=== PATIENT | female | born 1980 ===

== ENCOUNTER 2019-04-14 12:46 | Outpatient (CLI) | payer OTHER | END 2019-04-14 12:51 | disposition home or self-care (01) | LOC: NUCLEAR 12:46 | DX: N12 Tubulo-interstitial nephritis, not specified as acute or chronic (principal) | CPT/HCPCS: 78708; A9539; J1940 ==

== ENCOUNTER → 2019-04-26 08:03 | Outpatient (CLI) | payer OTHER | END | disposition home or self-care (01) | LOC: LAB 08:03 | DX: N30.00 Acute cystitis without hematuria (principal) ==

== ENCOUNTER 2024-11-25 09:57 | Outpatient (CLI) | payer OTHER | END 2024-11-25 12:34 | disposition home or self-care (01) | LOC: NST 09:57 | PROVIDERS: ATTEND Obstetrics & Gynecology | DX: Z34.83 Encounter for supervision of other normal pregnancy, third trimester (principal) ==

== ENCOUNTER 2024-12-02 15:51 | Outpatient (CLI) | payer OTHER | END 2024-12-02 16:57 | disposition home or self-care (01) | LOC: NST 15:51 | PROVIDERS: ATTEND Obstetrics & Gynecology | DX: Z34.83 Encounter for supervision of other normal pregnancy, third trimester (principal) ==

== ENCOUNTER → 2024-12-05 | Outpatient (CLI) | payer OTHER | END | disposition home or self-care (01) | LOC: NST 19:09 | PROVIDERS: ATTEND Obstetrics & Gynecology | DX: Z34.83 Encounter for supervision of other normal pregnancy, third trimester (principal) ==

== ENCOUNTER 2024-12-06 14:38 | Inpatient (IN) | payer OTHER ==
[~2024-12-06] VITALS: Ht 157.5 cm; Wt 2.7 kg
[2024-12-06 15:22] VITALS: BP 143/83
[2024-12-06] MEDS ORDERED: RINGERS SOLUTION,LACTATED 1,000 ML IV SCH (16:00)
[2024-12-06] MEDS ORDERED: MISOPROSTOL 25 MCG TABLET ONE (16:01)
[2024-12-06 16:38] LABS: HEMATOCRIT 39.1 % (36.0-45.00); MEAN CELL VOLUME 87.7 fL (80.00-100.00); MEAN CORPUSCULAR HEMOGLOBIN 29.1 pg (27.00-32.0); MEAN CORPUSCULAR HGB CONC 33.2 g/dl (32.0-36.0); RED BLOOD COUNT 4.46 M/uL (4.00-6.00); RED CELL DISTRIBUTION WIDTH 15.2 % (11.5-14.5)
[2024-12-06 16:50] LABS: INR 0.94; PARTIAL THROMBOPLASTIN TIME 28.2 SECONDS (22.0-34.0); PLATELET COUNT 164 K/uL (150-450); PROTHROMBIN TIME 10.3 SECONDS (9.0-11.5)
[2024-12-06] MEDS ORDERED: LABETALOL HCL 100 MG TABLET PO SCH (17:00)
[2024-12-06 17:15] LABS: ALBUMIN 2.4 gm/dL (3.4-5.0); BILIRUBIN TOTAL 0.2 mg/dL (0.3-1.2); CALCIUM 9.1 mg/dL (8.5-10.1); CREATININE SERUM 0.63 mg/dL (0.55-1.02); GFR 103.14; GLOBULINA 3.9 G/DL (2.4-3.5); POTASSIUM 4.59 mEq/L (3.5-5.1); TOTAL PROTEIN 6.3 gm/dL (6.4-8.2)
[2024-12-06] MEDS ORDERED: MISOPROSTOL 25 MCG TABLET VAG ONE (17:30)
[2024-12-06 19:36] VITALS: BP 133/75
[2024-12-06 23:14] VITALS: BP 133/77
[2024-12-07 03:06] VITALS: BP 142/68
[2024-12-07] MEDS ORDERED: OXYTOCIN 20 UNITS/500ML RL PIGGYBAG IV ONE (07:21)
[2024-12-07 07:35] VITALS: BP 161/85
[2024-12-07] MEDS ORDERED: CITRIC ACID/SODIUM CITRATE 30 ML BLIST.PACK PO ONE (07:44)
[2024-12-07] MEDS ORDERED: OXYTOCIN 500 ML IV ONE (09:00)
[2024-12-07] MEDS ORDERED: SERTRALINE HCL 50 MG TABLET PO SCH (09:00)
[2024-12-07] MEDS ORDERED: ERYTHROMYCIN BASE OPHT 1GM EACH TUBE OP ONE (09:54)
[2024-12-07] MEDS ORDERED: OXYTOCIN 10 UNITS/ML VIAL ONE ×2 (09:54→13:35)
[2024-12-07] MEDS ORDERED: CEFAZOLIN SODIUM 1,000 MG VIAL ONE (09:55)
[2024-12-07] MEDS ORDERED: MORPHINE SULFATE 4 MG/ML VIAL IV ONE ×2 (11:40→13:30)
[2024-12-07] MEDS ORDERED: OXYTOCIN 1,000 ML IV SCH (11:45)
[2024-12-07] MEDS ORDERED: MORPHINE SULFATE 4 MG/ML CARTRIDGE IV PRN ×2 (11:45→15:45)
[2024-12-07] MEDS ORDERED: ONDANSETRON HCL 2 MG/ML VIAL ONE (13:34)
[2024-12-07] MEDS ORDERED: KETOROLAC TROMETHAMINE 60 MG VIAL IM ONE (15:40)
[2024-12-07] MEDS ORDERED: KETOROLAC TROMETHAMINE 60 MG VIAL IM STA (15:41)
[2024-12-07 16:07] VITALS: BP 140/80
[2024-12-07] MEDS ORDERED: LABETALOL HCL 100 MG TABLET PO SCH (17:00)
[2024-12-07 23:39] VITALS: BP 140/80
[2024-12-08 05:00] VITALS: BP 146/79
[2024-12-08] MEDS ORDERED: MORPHINE SULFATE 4 MG/ML CARTRIDGE IV PRN (08:15)
[2024-12-08 08:38] VITALS: BP 155/84
[2024-12-08] MEDS ORDERED: LABETALOL HCL 200 MG TABLET PO SCH (09:00)
[2024-12-08] MEDS ORDERED: IBUprofen 400 MG TABLET PO SCH (09:00)
[2024-12-08 10:10] LABS: HEMATOCRIT 36.9 % (36.0-45.00); HEMOGLOBIN 12.2 g/dL (12.0-15.00); MEAN CELL VOLUME 88.7 fL (80.00-100.00); MEAN CORPUSCULAR HEMOGLOBIN 29.2 pg (27.00-32.0); MEAN CORPUSCULAR HGB CONC 32.9 g/dl (32.0-36.0); PLATELET COUNT 148 K/uL (150-450); RED BLOOD COUNT 4.16 M/uL (4.00-6.00); RED CELL DISTRIBUTION WIDTH 15.1 % (11.5-14.5)
[2024-12-08 16:41] VITALS: BP 130/80
[2024-12-08] MEDS ORDERED: OxyCODONE HCL 5 MG TABLET (ROXICODONE) PO PRN (17:15)
[2024-12-09] VITALS: BP 139/79
[2024-12-09] MEDS ORDERED: OxyCODONE HCL 5 MG TABLET (ROXICODONE) PO PRN (06:00)
[2024-12-09] MEDS ORDERED: BISACODYL 10 MG/SUPP.RECT SUPP.RECT RECTAL STA (08:31)
[2024-12-09 08:49] VITALS: BP 138/76
[2024-12-10 01:02] VITALS: BP 141/77
[2024-12-10 08:00] VITALS: BP 140/80
== END 2024-12-10 14:09 | disposition home or self-care (01) | DRG 788 ==
LOC: SURH → O/R 14:38 → LDR 14:38 → OB/GYN 14:38 → O/R 12-07 09:50 → OB/GYN 12-07 11:56 → SURH 12-12 13:02
PROVIDERS: ADMIT Obstetrics & Gynecology; ATTEND Obstetrics & Gynecology
PROC: 4A1HXCZ Monitoring of Products of Conception, Cardiac Rate, External Approach (ICD-10-PCS; 2024-12-06)
PROC: 3E0P7VZ Introduction of Hormone into Female Reproductive, Via Natural or Artificial Opening (ICD-10-PCS; 2024-12-06)
PROC: 3E033VJ Introduction of Other Hormone into Peripheral Vein, Percutaneous Approach (ICD-10-PCS; 2024-12-07)
PROC: 10D00Z1 Extraction of Products of Conception, Low, Open Approach (ICD-10-PCS; principal; 2024-12-07 12:00)
DX: O62.0 Primary inadequate contractions (principal); Z3A.38 38 weeks gestation of pregnancy; Z37.0 Single live birth; O99.824 Streptococcus B carrier state complicating childbirth